=== PATIENT | male | born 2005 | race Caucasian/White ===

== ENCOUNTER 2025-07-10 00:29 | Emergency (ER) | payer MEDICAID, OTHER ==
[~2025-07-10] VITALS: Ht 162.6 cm; Wt 77.1 kg
[2025-07-10 02:11] LABS: PLATELET COUNT (AUTO) 237 K/uL (150-450); RED BLOOD CELL COUNT(AUTO) 4.93 MIL/uL (4.5-6.0); RED CELL DISTRIBUTION WIDTH 12.9 % (11.5-15.0); WHITE BLOOD COUNT (AUTO) 9.2 K/uL (4.3-11.0)
[2025-07-10 02:16] LABS: CALCIUM, SERUM 9.0 mg/dL (8.5-10.1); CREATININE 0.9 mg/dL (0.6-1.3); ERYTHROCYTE SEDIMENTATION RATE < 1 MM/HR (0-15); SODIUM SERUM 140.0 mmol/L (136-145); UREA NITROGEN, BLOOD 13.0 mg/dL (7-18)
[2025-07-10 02:22] LABS: ASPARTATE AMINOTRANSFERASE 14.0 U/L (15-37); TOTAL PROTEIN, SERUM 7.3 g/dL (6.4-8.2)
[2025-07-10] MEDS ORDERED: PANT40TA49 PO (02:53)
[2025-07-10] MEDS ORDERED: IBUP-1953 PO (02:53)
[2025-07-10 03:09] VITALS: BP 135/80; TEMP 98.1; O2SAT 98
== END 2025-07-10 03:10 | disposition home or self-care (01) ==
LOC: ER 00:36
DX: I31.9 Disease of pericardium, unspecified (principal); R06.02 Shortness of breath; R07.9 Chest pain, unspecified; R20.2 Paresthesia of skin; F17.200 Nicotine dependence, unspecified, uncomplicated
CPT/HCPCS: 36415; 71045-TC; 80053-TC; 84484-TC; 84550-TC; 85025-TC; 85652-TC